=== PATIENT | male | born 1965 | race African-American/Black ===

== ENCOUNTER 2018-11-18 15:25 | Emergency (ER) | payer OTHER, BC ==
[~2018-11-18] VITALS: Ht 180.3 cm; Wt 144.7 kg
[~2018-11-18 15:25] MED LIST: ACETAMINOPHEN325 M1 PO; AMLODIPINE BESY10 MG PO; AUGMENTIN 875-1 EACH PO; AZITHROMYCIN 2250 MG PO; BACTRIM DS TAB1 EACH; BACTRIM DS TAB1 EACH PO; BYSTOLIC20 MG PO; CATAPRES0.2 M1 PO; CENTANY30 GM TOP; CLEOCIN HCL300 MG PO; HCTZ PO; HYDROCODON-ACE1 EAC7 PO; LIPITOR10 MG PO; MEDROLDOSEPACK PO; NORCO 5-325 TA1 EACH PO; PROAIR HFA8.5 GM IH; TEKTURNA300 MG PO; TESSALON200 MG PO; ULTRAM 50MG TAB50 MG PO; [UNRECOGNIZED DRUG - OTHER]
[2018-11-18 15:56] VITALS: BP 161/81
== END 2018-11-18 15:56 | disposition home or self-care (01) ==
LOC: M.ERS 15:25
DX: S81.812D Laceration without foreign body, left lower leg, subsequent encounter (principal); I10 Essential (primary) hypertension; M10.9 Gout, unspecified; G47.30 Sleep apnea, unspecified; X58.XXXD Exposure to other specified factors, subsequent encounter